=== PATIENT | female | born 1995 | race American Indian/Alaskan Native ===

== ENCOUNTER 2017-12-02 22:54 | Emergency (ER) | payer MEDICAID ==
[2017-12-02 23:23] VITALS: BP 115/73
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
== END 2017-12-03 01:40 | disposition home or self-care (01) ==
LOC: ED 22:54
DX: S65.212A Laceration of superficial palmar arch of left hand, initial encounter (principal); S61.250A Open bite of right index finger without damage to nail, initial encounter; E11.9 Type 2 diabetes mellitus without complications; F20.9 Schizophrenia, unspecified; F31.9 Bipolar disorder, unspecified; F90.9 Attention-deficit hyperactivity disorder, unspecified type; Z91.010 Allergy to peanuts; Z91.013 Allergy to seafood; Z88.8 Allergy status to other drugs, medicaments and biological substances; J45.909 Unspecified asthma, uncomplicated; Z87.891 Personal history of nicotine dependence; Y04.0XXA Assault by unarmed brawl or fight, initial encounter; Y93.89 Activity, other specified; Y92.89 Other specified places as the place of occurrence of the external cause; Y99.8 Other external cause status

== ENCOUNTER 2018-01-31 19:50 | Emergency (ER) | payer MEDICAID ==
[2018-01-31 21:07] LABS: BUN/Creatinine Ratio 17; Blood Urea Nitrogen 10 mg/dL (7-17); Calcium 9.4 mg/dL (8.4-10.2); Hemolysis Index 0
[2018-01-31 21:09] LABS: Basophils % (Auto) 0.5 % (0.0-1.8); Eosinophils # (Auto) 0.1 K/mm3 (0.0-0.4); Eosinophils % (Auto) 0.9 % (0.0-4.3); Hematocrit 38.8 % (30.3-42.9); Hemoglobin 12.6 gm/dl (10.1-14.3); Lymphocytes # (Auto) 1.5 K/mm3 (1.2-5.4); Lymphocytes % (Auto) 17.5 % (13.4-35.0); Mean Corpuscular HGB Conc 33 % (30-34); Mean Corpuscular Hemoglobin 32 pg (28-32); Mean Corpuscular Volume 97 fl (79-97); Monocytes # (Auto) 0.5 K/mm3 (0.0-0.8); Monocytes % (Auto) 5.3 % (0.0-7.3); Platelet Count 357 K/mm3 (140-440); Red Blood Count 4.01 M/mm3 (3.65-5.03); Red Cell Distribution Width 13.1 % (13.2-15.2)
[2018-01-31 21:23] LABS: Amphetamine Screen,Urine PRESUMPTIVE NEGATIVE; Benzodiazepines Screen,Urine PRESUMPTIVE NEGATIVE; Cannabinoid Screen,Urine PRESUMPTIVE NEGATIVE; Cocaine Screen,Urine PRESUMPTIVE NEGATIVE; Methadone Screen,Urine PRESUMPTIVE NEGATIVE; Opiate Screen,Urine PRESUMPTIVE NEGATIVE
[2018-01-31 21:30] LABS: Bacteria,Urine 1+ /HPF (Negative); Bilirubin,Urine NEG (Negative); Blood,Urine NEG (Negative); Color,Urine Yellow (Yellow); Mucus,Urine 2+ /HPF; Protein,Urine <15 mg/dL mg/dL (Negative); Urobilinogen,Urine < 2.0 mg/dL (<2.0)
[2018-01-31] MEDS ORDERED: HALDOL IM ONE (23:09)
[2018-01-31] MEDS ORDERED: COGENTIN IM ONE (23:36)
[2018-01-31] MEDS ORDERED: ATIVAN IM ONE (23:37)
--- NOTE | 2018-02-01 06:46 | Emergency Department Report ---
HPI - General Chief Complaint: Psych Time Seen by Provider: 01/31/18 21:05 - HPI HPI: 22-year-old -Nepalese female was brought to the ED for self mutilating, delusions, hallucinations. Patient wrote "alway love" with a razor on her right leg. The ACT team was called and patient was brought to er. in ER patient continue to have hallucinations, became agitated and required medications for stabilization. ED Past Medical Hx - Past Medical History Hx Diabetes: Yes Hx Psychiatric Treatment: Yes (schizophrenia-affective, bipolar, ADHD, PTSD) Hx Asthma: Yes Additional medical history: ECZEMA - Surgical History Additional Surgical History: chest abscess. - Social History Smoking Status: Never Smoker Substance Use Type: None - Medications Home Medications: Home Medications Medication Instructions Recorded Confirmed Last Taken Type carBAMazepine [TEGretol] 200 mg PO Q12H 04/10/15 06/29/16 Unknown History metFORMIN [Glucophage] 500 mg PO BID 01/26/16 06/29/16 Unknown History DULoxetine [Cymbalta] 30 mg PO QAM 06/29/16 06/29/16 Unknown History Lurasidone HCl [Latuda] 2 tab PO QHS 06/29/16 06/29/16 Unknown History Amoxicillin/Potassium Clav 1 each PO BID #14 tablet 12/03/17 Unknown Rx [Augmentin 875-125 Tablet] Erythromycin [Erythromycin Ophth 10 applic OP QID #1 tube 12/03/17 Unknown Rx Oint] ED Review of Systems ROS: Stated complaint: MH Other details as noted in HPI Comment: All other systems reviewed and negative Constitutional: no symptoms reported Neurological: denies: headache, weakness Psychiatric: anxiety, depression, auditory hallucinations, visual hallucinations. denies: homicidal thoughts Physical Exam - Physical Exam Vital Signs: Vital Signs 01/31/18 01/31/18 20:22 21:27 Temperature 97.9 F 98.9 F Pulse Rate 78 72 Respiratory 16 18 Rate Blood Pressure 119/83 Blood Pressure 124/86 [Left] O2 Sat by Pulse 100 100 Oximetry Physical Exam: Gen. alert and oriented 3 in no distress Head atraumatic normocephalic Eyes PERR LA EOMI Chest regular rate and rhythm normal S1-S2 lungs clear bilaterally Abdomen soft nondistended Back no point tenderness. Neuro no focal deficit. Psych auditory and visual hallucinations, delusions, self mutilating gestures. skin: always love written with a razor on patient lower leg, bleeding stopped. ED Course Vital Signs 01/31/18 01/31/18 20:22 21:27 Temperature 97.9 F 98.9 F Pulse Rate 78 72 Respiratory 16 18 Rate Blood Pressure 119/83 Blood Pressure 124/86 [Left] O2 Sat by Pulse 100 100 Oximetry ED Medical Decision Making - Lab Data Result diagrams: 01/31/18 20:32 01/31/18 20:32 Critical care attestation.: If time is entered above; I have spent that time in minutes in the direct care of this critically ill patient, excluding procedure time. ED Disposition Clinical Impression: Suicidal ideation, Encounter for medical clearance for patient hold Schizophrenia Qualifiers: Schizophrenia type: unspecified Qualified Code(s): F20.9 - Schizophrenia, unspecified Disposition: DC/TX-65 PSY HOSP/PSY UNIT Is pt being admited?: No Does the pt Need Aspirin: No Condition: Stable Referrals: MIYA PERKINS MD [Primary Care Provider] - 3-5 Days
[2018-02-01] MEDS ORDERED: BOOSTRIX IM ONE ×2 (06:55→13:30)
[2018-02-02] MEDS ORDERED: BENADRYL PO ONE ×2 (03:30)
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
[2018-02-02] MEDS: ABILIFY PO SCH (22:53)
[2018-02-03] MEDS: ABILIFY PO SCH (22:05)
--- NOTE | 2018-02-04 12:54 | Progress Note ---
Subjective - Reason for Consult Consult date: 02/04/18 Reason for consult: Psychiatry Follow-up - Chief Complaint Chief complaint: "I was hearing voices yesterday" 22-year-old -Ira[place] female was brought to the ED for self mutilating, delusions, and hallucinations. Today the patient is calm, cooperative, but disorganized during the assessment. She had to be redirected several times to keep her on topic. She stated that she carved "always love" in her right leg. She stated that the voices told her to do that. She stated that the voices are decreasing. She denies SI/HI's and VH's. She denies any side effects of her medication. Mental Status Exam - Vital signs Last Vital Signs Temp 98.7 F 02/04/18 10:46 Pulse 87 02/04/18 10:46 Resp 16 02/04/18 10:46 BP 113/68 02/04/18 10:46 Pulse Ox 100 02/04/18 10:46 - Exam Narrative exam: MSE: Appearance: calm, cooperative Behavior: regular eye contact Speech: regular rate and tone Mood: "okay" Affect: congruent to mood Thought Process: circumstantial Thought Content: denies SI/HI's and VH's, disorganized Motor Activity: sitting up in bed Cognition: A/O x 3 Insight: variable Judgment: variable Assessment and Plan Impression: Unspecified Psychosis. Today the patient is calm, cooperative, but disorganized during the assessment. DDx: R/O Schizoaffective DO, R/O MDD with psychosis, R/O Bipolar DO, R/O Personality DO Recommendation/Plan: Continue 1013 with placement to inpatient psy services. Continue Abilify 15 mg PO HS for psychosis. Discussed possible metabolic side effects of Abilify with patient.
[2018-02-04] MEDS: ABILIFY PO SCH (22:46)
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
[2018-02-05] MEDS: ABILIFY PO SCH (22:20)
--- NOTE | 2018-02-06 14:49 | Progress Note ---
Subjective - Reason for Consult Consult date: 02/06/18 Reason for consult: Psychiatric Follow-up Evaluation - Chief Complaint Chief complaint: "I feel good." Patient is a 22-year-old -Tuval[place] female was brought to the ED for self mutilating, delusions, and hallucinations. Today the patient is calm and cooperative during the assessment. She states "The voices are decreasing. They 're very low." Patient is unable to determine what the voices are saying. She reports good sleep, good appetite, and good energy. She reports medication compliance and denies any side effects to medication. No SI/HI's and VH's. are reported. Mental Status Exam - Vital signs Last Vital Signs Temp 98.3 F 02/05/18 22:00 Pulse 73 02/05/18 22:00 Resp 18 02/05/18 22:00 BP 128/76 02/05/18 22:00 Pulse Ox 100 02/05/18 22:00 - Exam Narrative exam: Mental Status Exam Appearance: Casually dressed- hospital gown Attitude/Behavior: Cooperative, calm Sensorium: Clear Orientation : Alert and orientation x 4 (person, place, time, and situation) Eye Contact: Good Psychomotor & Musculoskeletal: WNL Behavior: Appropriate Speech: Normal rate and tone Mood: "Happy" Affect: Congruent to mood Thought Process: Organized but circumstantial Thought Content: + Auditory Hallucinations-less Judgment: Fair Insight: Fair to Poor Assessment and Plan Impression: Guerda is a 22 year old AAF who presents to the emergency room for self mutilating, delusions, and hallucinations. Patient has PPHx of Schizophrenia. Today, patient is calm and cooperative. She reports euthymic mood. Although she endorses auditory hallucinations she states that the voices are decreasing. She denies suicidal/ homicidal ideation and visual hallucinations. Patient expresses that she has no desire to self-harm. Patient is known to provider at different facilities and appears to present with improved mood and psychosis. DDx: Psychosis Unspecified R/O Schizoaffective DO, R/O MDD with psychosis, R/ O Bipolar DO, R/O Personality DO Recommendation/Plan: 1. Continue 1013 and reassess in 24 hours. 2. Continue Abilify 15mg po QHS depression/psychosis. 3. Will monitor mood, sleep, appetite, and medication.
[2018-02-06] MEDS: ABILIFY PO SCH (22:45)
--- NOTE | 2018-02-07 11:20 | Progress Note ---
Subjective - Reason for Consult Consult date: 02/07/18 Reason for consult: Psychiatry Follow-up - Chief Complaint Chief complaint: "I will need somewhere to live" 22-year-old -Tongan female was brought to the ED for self mutilating, delusions, and hallucinations. Today the patient is calm and cooperative during the assessment. She stated that the voices has ceased. She stated that she has a ACT Team with [facility]. She denies SI/HI's and AVH's. She denies any side effects of her medication. Per collateral information from Vida Pierre with [facility] ACT [facility] at [phone], she stated that the patient is seen by their services. Mental Status Exam - Vital signs Last Vital Signs Temp 97.8 F 02/06/18 20:00 Pulse 68 02/06/18 20:00 Resp 18 02/06/18 20:00 BP 122/68 02/06/18 20:00 Pulse Ox 100 02/06/18 20:00 - Exam Narrative exam: MSE: Appearance: calm, cooperative Behavior: regular eye contact Speech: regular rate and tone Mood: "okay" Affect: congruent to mood Thought Process: logical Thought Content: denies SI/HI's and AVH's Motor Activity: sitting up in bed Cognition: A/O x 3 Insight: fair Judgment: fair Assessment and Plan Impression: Unspecified Psychosis. Today the patient is calm and cooperative during the assessment. DDx: R/O Schizoaffective DO, R/O Schizophrenia, R/O MDD with psychosis, R/O Bipolar DO, R/O Personality DO Recommendation/Plan: Rescind 1013. Continue Abilify 15 mg PO HS for psychosis. Discussed possible metabolic side effects of Abilify with patient. The patient can follow-up with her ACT Team ([facility]) for outpatient psy services.
[2018-02-07 16:34] VITALS: BP 94/65
== END 2018-02-07 19:09 ==
LOC: ED 19:50 → EEVIPCON 19:50 → ED 02-07 19:09
DX: R45.851 Suicidal ideations (principal); Z53.21 Procedure and treatment not carried out due to patient leaving prior to being seen by health care provider
CPT/HCPCS: 36415; 80048; 80307; 81001; 84703; 85025; 90471; 90715; 96372; 99285; G0480; J1630; 80320

== ENCOUNTER 2018-03-11 15:50 | Emergency (ER) | payer MEDICAID ==
[2018-03-11 16:14] VITALS: BP 119/75
[2018-03-11 16:49] LABS: HCG Qualitative,Urine Negative (Negative)
--- NOTE | 2018-03-11 17:59 | XRay Report ---
FINAL REPORT EXAM: XR HAND 3+V LT HISTORY: hand injury TECHNIQUE: PA, oblique and lateral radiographs of the left hand. PRIORS: None. FINDINGS: No fracture. No dislocation. Normal mineralization. No soft tissue abnormality. IMPRESSION: No acute left hand abnormality.
[2018-03-11] MEDS ORDERED: MOTRIN PO ONE (18:38)
--- NOTE | 2018-03-11 18:43 | Emergency Department Report ---
ED Upper Extremity Inj HPI - General Chief Complaint: Extremity Injury, Upper Stated Complaint: HAND INJURY Time Seen by Provider: 03/11/18 18:38 Source: patient Mode of arrival: Ambulatory Limitations: No Limitations - History of Present Illness Initial Comments: This is a 22-year-old female nontoxic, well nourished in appearance, no acute signs of distress presents to the ED with c/o of left hand pain and swelling. Patient stated that she became mad and hit the wall. Patient denies any decreased range of motion, joint swelling, joint redness, fever, chills, nausea , vomiting, headache, stiff neck, back pain, chest pain or shortness of breathe. Patient denies decreased sensation. MD Complaint: Injury to:: left, hand -: days(s) (1) Other Extremity Injury: Hand: Left Severity scale (0 -10): 8 Improves With: immobilization Worsens With: movement of extremity Context: direct blow Associated Symptoms: denies other symptoms. denies: weakness, numbness, neck pain, suspects foreign body, nausea/vomiting, heard/felt popping sensat - Related Data Home Medications Medication Instructions Recorded Confirmed Last Taken carBAMazepine [TEGretol] 200 mg PO Q12H 04/10/15 02/02/18 Unknown metFORMIN [Glucophage] 500 mg PO BID 01/26/16 02/02/18 Unknown DULoxetine [Cymbalta] 30 mg PO QAM 06/29/16 02/02/18 Unknown Lurasidone HCl [Latuda] 2 tab PO QHS 06/29/16 02/02/18 Unknown Previous Rx's Medication Instructions Recorded Last Taken Type Amoxicillin/Potassium Clav 1 each PO BID #14 tablet 12/03/17 Unknown Rx [Augmentin 875-125 Tablet] Erythromycin [Erythromycin Ophth 10 applic OP QID #1 tube 12/03/17 Unknown Rx Oint] Ibuprofen [Motrin] 600 mg PO Q8H PRN #30 tablet 03/11/18 Unknown Rx Allergies Allergy/AdvReac Type Severity Reaction Status Date / Time wheat Allergy Unknown Verified 03/11/18 16:11 peanut AdvReac Unknown Verified 12/02/17 23:19 quetiapine fumarate AdvReac Unknown Verified 12/02/17 23:19 [From Seroquel] shellfish derived AdvReac Unknown Verified 12/02/17 23:19 sea foods Allergy Hives Uncoded 02/04/18 23:19 ED Review of Systems ROS: Stated complaint: HAND INJURY Other details as noted in HPI Constitutional: denies: chills, fever Eyes: denies: eye pain, eye discharge, vision change ENT: denies: ear pain, throat pain Respiratory: denies: cough, shortness of breath, wheezing Cardiovascular: denies: chest pain, palpitations Endocrine: no symptoms reported Gastrointestinal: denies: abdominal pain, nausea, diarrhea Genitourinary: denies: urgency, dysuria, discharge Musculoskeletal: arthralgia. denies: back pain, joint swelling Skin: denies: rash, lesions Neurological: denies: headache, weakness, paresthesias Psychiatric: denies: anxiety, depression Hematological/Lymphatic: denies: easy bleeding, easy bruising ED Past Medical Hx - Past Medical History Hx Diabetes: Yes Hx Psychiatric Treatment: Yes (schizophrenia-affective, bipolar, ADHD, PTSD) Hx Asthma: Yes Additional medical history: ECZEMA - Surgical History Additional Surgical History: chest abscess. - Social History Smoking Status: Never Smoker Substance Use Type: None - Medications Home Medications: Home Medications Medication Instructions Recorded Confirmed Last Taken Type carBAMazepine [TEGretol] 200 mg PO Q12H 04/10/15 02/02/18 Unknown History metFORMIN [Glucophage] 500 mg PO BID 01/26/16 02/02/18 Unknown History DULoxetine [Cymbalta] 30 mg PO QAM 06/29/16 02/02/18 Unknown History Lurasidone HCl [Latuda] 2 tab PO QHS 06/29/16 02/02/18 Unknown History Amoxicillin/Potassium Clav 1 each PO BID #14 tablet 12/03/17 02/02/18 Unknown Rx [Augmentin 875-125 Tablet] Erythromycin [Erythromycin Ophth 10 applic OP QID #1 tube 12/03/17 02/02/18 Unknown Rx Oint] Ibuprofen [Motrin] 600 mg PO Q8H PRN #30 tablet 03/11/18 Unknown Rx ED Physical Exam - General Limitations: No Limitations General appearance: alert, in no apparent distress - Head Head exam: Present: atraumatic, normocephalic - Eye Eye exam: Present: normal appearance Pupils: Present: normal accommodation - ENT ENT exam: Present: normal exam, mucous membranes moist - Neck Neck exam: Present: normal inspection, full ROM. Absent: tenderness, meningismus, lymphadenopathy - Respiratory Respiratory exam: Present: normal lung sounds bilaterally. Absent: respiratory distress, wheezes, rales, rhonchi, stridor - Cardiovascular Cardiovascular Exam: Present: regular rate, normal rhythm, normal heart sounds. Absent: irregular rhythm, systolic murmur, diastolic murmur, rubs, gallop - GI/Abdominal GI/Abdominal exam: Present: soft, normal bowel sounds. Absent: distended, tenderness, guarding, rebound, rigid, diminished bowel sounds - Rectal Rectal exam: Present: deferred - Extremities Exam Extremities exam: Present: normal inspection, full ROM, tenderness, normal capillary refill - Expanded Upper Extremity Exam Left General: Present: normal inspection Shoulder Exam: Present: normal inspection, full ROM Upper Arm exam: Present: normal inspection, full ROM Elbow exam: Present: normal inspection, full ROM Forearm Wrist exam: Present: normal inspection, full ROM. Absent: tenderness, swelling, abrasion, laceration, ecchymosis, deformity, crepidus, dislocation, erythema, tenderness over anatomical snuff box, pain with axial thumb loading Hand Wrist exam: Present: normal inspection, full ROM, tenderness, swelling. Absent: abrasion, laceration, ecchymosis, deformity, crepidus, dislocation, erythema, amputation, nail avulsion, subungual hematoma Hand L/R Back: 1 - pain with swelling here Neuro motor exam: Present: wrist extension intact, thumb opposition intact, thumb IP flexion intact, thumb adduction intact, fingers 2-5 abduction intact Neurosensory exam: Present: 2-point discrimination, radial nerve intact, ulnar nerve intact, median nerve intact Vascular: Present: vascular compromise, normal capillary refill, radial pulse, brachial pulse, ulnar pulse - Back Exam Back exam: Present: normal inspection, full ROM - Neurological Exam Neurological exam: Present: alert, oriented X3, normal gait - Psychiatric Psychiatric exam: Present: normal affect, normal mood - Skin Skin exam: Present: warm, dry, intact, normal color. Absent: rash ED Course Vital Signs 03/11/18 16:11 Temperature 98.7 F Pulse Rate 105 H Respiratory 18 Rate Blood Pressure 119/75 O2 Sat by Pulse 97 Oximetry - Reevaluation(s) Reevaluation #1: 03/11/18 18:42 Patient is speaking in full sentences with no signs of distress noted. ED Medical Decision Making - Medical Decision Making This is a 22-year-old female that presents with left hand strain. Patient is stable and was examined by me. X-ray has been obtained and dictated by the radiologist. Patient is notified of the x-ray report with noted by the patient. Patient does not have decreased ROM with no tenderness and no joint swelling. No ecchymosis. no joint redness. Not warm to touch. No signs of cellulites present. Patient was instructed to RICE therapy. Patient received Motrin for pain. Patient is discharged with Motrin. At time of discharge, the patient does not seem toxic or ill in appearance. No acute signs of distress noted. Patient agrees to discharge treatment plan of care. No further questions noted by the patient. Critical care attestation.: If time is entered above; I have spent that time in minutes in the direct care of this critically ill patient, excluding procedure time. ED Disposition Clinical Impression: Strain of left hand Qualifiers: Encounter type: initial encounter Qualified Code(s): S66.912A - Strain of unspecified muscle, fascia and tendon at wrist and hand level, left hand, initial encounter Disposition: DC- TO HOME OR SELFCARE Is pt being admited?: No Does the pt Need Aspirin: No Condition: Stable Instructions: RICE Therapy (ED), Ibuprofen (By mouth) Additional Instructions: Follow-up with a orthopedic doctor in 3-5 days or if symptoms worsen and continue return to emergency room as soon as possible. Prescriptions: Ibuprofen [Motrin] 600 mg PO Q8H PRN #30 tablet PRN Reason: Pain Referrals: PRIMARY CARE, [Referring] - 3-5 Days JONNA LANTIGUA MD [Staff Physician] - 3-5 Days [facility] [Outside] - 3-5 Days [facility] [Outside] - 3-5 Days Forms: Work/School Release Form(ED)
== END 2018-03-11 19:00 | disposition home or self-care (01) ==
LOC: ED 15:50
DX: S66.912A Strain of unspecified muscle, fascia and tendon at wrist and hand level, left hand, initial encounter (principal); E11.9 Type 2 diabetes mellitus without complications; Z91.010 Allergy to peanuts; Z91.013 Allergy to seafood; Z88.8 Allergy status to other drugs, medicaments and biological substances; Z91.018 Allergy to other foods; W22.01XA Walked into wall, initial encounter; Y93.89 Activity, other specified; Y92.89 Other specified places as the place of occurrence of the external cause; Y99.8 Other external cause status
CPT/HCPCS: 81025; 99284

== ENCOUNTER 2018-05-02 16:31 | Emergency (ER) | payer MEDICAID | END 2018-05-02 16:46 | disposition left against medical advice (07) | LOC: ED 16:31 | DX: Z00.8 Encounter for other general examination (principal); Z53.21 Procedure and treatment not carried out due to patient leaving prior to being seen by health care provider ==

== ENCOUNTER 2018-05-02 19:43 | Emergency (ER) | payer MEDICAID ==
[2018-05-02 20:46] LABS: Basophils # (Auto) 0.1 K/mm3 (0.0-0.1); Basophils % (Auto) 0.6 % (0.0-1.8); Eosinophils # (Auto) 0.1 K/mm3 (0.0-0.4); Eosinophils % (Auto) 0.9 % (0.0-4.3); Hematocrit 37.6 % (30.3-42.9); Hemoglobin 12.4 gm/dl (10.1-14.3); Lymphocytes # (Auto) 1.8 K/mm3 (1.2-5.4); Mean Corpuscular HGB Conc 33 % (30-34); Mean Corpuscular Hemoglobin 31 pg (28-32); Mean Corpuscular Volume 95 fl (79-97); Monocytes # (Auto) 0.6 K/mm3 (0.0-0.8); Monocytes % (Auto) 5.8 % (0.0-7.3); Platelet Count 375 K/mm3 (140-440); Red Blood Count 3.95 M/mm3 (3.65-5.03)
[2018-05-02 20:51] LABS: BUN/Creatinine Ratio 23; Blood Urea Nitrogen 14 mg/dL (7-17); Calcium 9.6 mg/dL (8.4-10.2); Hemolysis Index 2
--- NOTE | 2018-05-02 21:29 | Emergency Department Report ---
ED Psych HPI - General Chief Complaint: Psych Stated Complaint: MH Time Seen by Provider: 05/02/18 21:08 Source: patient Mode of arrival: Ambulatory - History of Present Illness Initial Comments: Ms. Paulson is a 22-year-old female with history of schizophrenia, asthma and eczema who presents after being kicked out of her residential,[facility] She was told she was unable to come back to the house. She was brought to the ER by EMS. She does have command hallucinations telling her to kill herself although she states that she is not depressed. She states that she does not want to kill herself. Desires to be placed into [place] psychiatric facility. She does not have any medical complaints. She receives mental health care at [facility]. She takes Clozaril Complaint: other (command auditory hallucinations) -: Gradual, days(s) (over the last several days) Associated Psychiatric Symptoms: none, auditory hallucinations Quality: constant Improves With: none Worsens With: none Context: significant life stressor Associated Symptoms: denies other symptoms - Related Data Home Medications Medication Instructions Recorded Confirmed Last Taken carBAMazepine [TEGretol] 200 mg PO Q12H 04/10/15 02/02/18 Unknown metFORMIN [Glucophage] 500 mg PO BID 01/26/16 02/02/18 Unknown DULoxetine [Cymbalta] 30 mg PO QAM 06/29/16 02/02/18 Unknown Lurasidone HCl [Latuda] 2 tab PO QHS 06/29/16 02/02/18 Unknown Previous Rx's Medication Instructions Recorded Last Taken Type Amoxicillin/Potassium Clav 1 each PO BID #14 tablet 12/03/17 Unknown Rx [Augmentin 875-125 Tablet] Erythromycin [Erythromycin Ophth 10 applic OP QID #1 tube 12/03/17 Unknown Rx Oint] Ibuprofen [Motrin] 600 mg PO Q8H PRN #30 tablet 03/11/18 Unknown Rx Allergies Allergy/AdvReac Type Severity Reaction Status Date / Time wheat Allergy Unknown Verified 03/11/18 16:11 peanut AdvReac Unknown Verified 12/02/17 23:19 quetiapine fumarate AdvReac Unknown Verified 12/02/17 23:19 [From Seroquel] shellfish derived AdvReac Unknown Verified 12/02/17 23:19 sea foods Allergy Hives Uncoded 12/02/17 23:19 ED Review of Systems ROS: Stated complaint: MH Other details as noted in HPI Comment: All other systems reviewed and negative Constitutional: denies: fever, malaise Respiratory: denies: cough Cardiovascular: denies: chest pain Psychiatric: auditory hallucinations. denies: anxiety, depression, visual hallucinations, homicidal thoughts ED Past Medical Hx - Past Medical History Hx Diabetes: Yes Hx Psychiatric Treatment: Yes (schizophrenia-affective, bipolar, ADHD, PTSD) Hx Asthma: Yes Additional medical history: ECZEMA - Surgical History Additional Surgical History: chest abscess. - Social History Smoking Status: Never Smoker Substance Use Type: None - Medications Home Medications: Home Medications Medication Instructions Recorded Confirmed Last Taken Type carBAMazepine [TEGretol] 200 mg PO Q12H 04/10/15 02/02/18 Unknown History metFORMIN [Glucophage] 500 mg PO BID 01/26/16 02/02/18 Unknown History DULoxetine [Cymbalta] 30 mg PO QAM 06/29/16 02/02/18 Unknown History Lurasidone HCl [Latuda] 2 tab PO QHS 06/29/16 02/02/18 Unknown History Amoxicillin/Potassium Clav 1 each PO BID #14 tablet 12/03/17 02/02/18 Unknown Rx [Augmentin 875-125 Tablet] Erythromycin [Erythromycin Ophth 10 applic OP QID #1 tube 12/03/17 02/02/18 Unknown Rx Oint] Ibuprofen [Motrin] 600 mg PO Q8H PRN #30 tablet 03/11/18 Unknown Rx ED Physical Exam - General Limitations: No Limitations General appearance: alert, in no apparent distress - Head Head exam: Present: atraumatic, normocephalic - Eye Eye exam: Present: normal appearance - ENT ENT exam: Present: mucous membranes moist - Neck Neck exam: Present: normal inspection. Absent: tenderness, meningismus - Respiratory Respiratory exam: Present: normal lung sounds bilaterally. Absent: respiratory distress, wheezes, rales, rhonchi - Cardiovascular Cardiovascular Exam: Present: regular rate, normal rhythm, normal heart sounds. Absent: systolic murmur, diastolic murmur, rubs, gallop - GI/Abdominal GI/Abdominal exam: Present: soft, normal bowel sounds. Absent: distended, tenderness, guarding, rebound - Extremities Exam Extremities exam: Present: normal inspection - Back Exam Back exam: Present: normal inspection - Neurological Exam Neurological exam: Present: alert, oriented X3 - Psychiatric Psychiatric exam: Present: normal affect, normal mood - Skin Skin exam: Present: warm, dry, intact, normal color. Absent: rash ED Course Vital Signs 05/02/18 05/02/18 19:50 21:55 Temperature 99.1 F 98.1 F Pulse Rate 130 H 105 H Respiratory 16 18 Rate Blood Pressure 151/105 Blood Pressure 116/75 [Left] O2 Sat by Pulse 98 100 Oximetry ED Medical Decision Making - Lab Data Result diagrams: 05/02/18 20:28 05/02/18 20:28 - EKG Data EKG shows normal: sinus rhythm, axis, intervals, QRS complexes, ST-T waves Rate: tachycardia - EKG Data 05/02/18 21:35 Time obtained 2024 Sinus tachycardia rate 115 beats a minute normal axis normal intervals no ST-T signs of ischemia no signs of pericarditis no acute Q waves 05/02/18 22:02 Second EKG obtained at 2141 Sinus tachycardia rate of 100 normal axis normal intervals no ST-T signs of ischemia no acute changes from previous EKG - Medical Decision Making Ms. Paulson presents with auditory hallucinations command hallucinations telling her to kill herself. She also has social issues. She does not have a place to stay. She was evicted from her residential. She was placed on 1013 for inability to contract for safety and poor insight. I reviewed previous ER reports. She's had recent suicide attempt and self mutilation. She recently tried to hang herself. She used a razor to cut herself. Guerda is medically clear for psychiatric care. Awaiting transfer to psychiatric facility. Critical care attestation.: If time is entered above; I have spent that time in minutes in the direct care of this critically ill patient, excluding procedure time. ED Disposition Clinical Impression: Schizophrenia, Suicidal ideation, Auditory hallucinations Disposition: DC/TX-70 ANOTHER TYPE HLTHCARE Is pt being admited?: No Does the pt Need Aspirin: No Condition: Stable Referrals: PRIMARY CARE, [Primary Care Provider] - 3-5 Days
[2018-05-02 21:47] LABS: Bilirubin,Urine NEG (Negative); Blood,Urine NEG (Negative); Color,Urine Yellow (Yellow); Mucus,Urine FEW /HPF; Protein,Urine <15 mg/dL mg/dL (Negative)
[2018-05-02 21:57] LABS: Amphetamine Screen,Urine PRESUMPTIVE NEGATIVE; Benzodiazepines Screen,Urine PRESUMPTIVE NEGATIVE; Cannabinoid Screen,Urine PRESUMPTIVE NEGATIVE; Cocaine Screen,Urine PRESUMPTIVE NEGATIVE; Methadone Screen,Urine PRESUMPTIVE NEGATIVE; Opiate Screen,Urine PRESUMPTIVE NEGATIVE
--- NOTE | 2018-05-03 14:21 | Consultation ---
History of Present Illness - Reason for Consult Consult date: 05/03/18 Reason for consult: Mental Health Evaluation Requesting physician: RICHARD ASHTON - Chief Complaint Chief complaint: "It's the voices" - History of Present Psychiatric Illness 22 y.o. AA female presenting to the ER for AH's telling her to kill herself. Today the patient is calm and cooperative during the assessment. She stated that she got into an argument with someone name "Stormy" at her place of residence a couple days ago. She stated that she went to [place] for stabilization and ran away. Her story that lead up to her ER admission to [facility] does not make since. She stated that the voices started effecting her when she ran away from [place]. She stated that the voices are telling her to harm herself. She would not confirm or deny SI's, but denies HI's. She denies VH's. She stated that she have not taken her Clozaril in 3 days. Medications and Allergies Allergies Allergy/AdvReac Type Severity Reaction Status Date / Time wheat Allergy Unknown Verified 03/11/18 16:11 peanut AdvReac Unknown Verified 12/02/17 23:19 quetiapine fumarate AdvReac Unknown Verified 12/02/17 23:19 [From Seroquel] shellfish derived AdvReac Unknown Verified 12/02/17 23:19 sea foods Allergy Hives Uncoded 12/02/17 23:19 Home Medications Medication Instructions Recorded Confirmed Last Taken Type carBAMazepine [TEGretol] 200 mg PO Q12H 04/10/15 02/02/18 Unknown History metFORMIN [Glucophage] 500 mg PO BID 01/26/16 02/02/18 Unknown History DULoxetine [Cymbalta] 30 mg PO QAM 06/29/16 02/02/18 Unknown History Lurasidone HCl [Latuda] 2 tab PO QHS 06/29/16 02/02/18 Unknown History Amoxicillin/Potassium Clav 1 each PO BID #14 tablet 12/03/17 02/02/18 Unknown Rx [Augmentin 875-125 Tablet] Erythromycin [Erythromycin Ophth 10 applic OP QID #1 tube 12/03/17 02/02/18 Unknown Rx Oint] Ibuprofen [Motrin] 600 mg PO Q8H PRN #30 tablet 03/11/18 Unknown Rx Past psychiatric history - Past Medical History Past Medical History: diabetes, other (Asthma) Past Surgical History: No surgical history - past Psychiatric treatment and history psychiatric treatment history: Several inpatient psy settings. Denies a fam psy hx. - Social History Social history: other ([facility] at a [facility]) Mental Status Exam - Vital signs Last Vital Signs Temp 97.5 F L 05/03/18 10:30 Pulse 108 H 05/03/18 10:30 Resp 18 05/03/18 11:52 BP 128/79 05/03/18 10:30 Pulse Ox 97 05/03/18 11:52 - Exam Narrative exam: MSE: Appearance: calm, cooperative Behavior: regular eye contact Speech: regular rate and tone Mood: "okay" Affect: congruent to mood Thought Process: disorganized Thought Content: denies HI's and VH's, the patient will not confirm or deny SI' s Motor Activity: sitting up in bed Cognition: A/O x 3 Insight: poor Judgment: poor Results Result Diagrams: 05/02/18 20:28 05/02/18 20:28 Abnormal lab results 05/02/18 05/02/18 05/02/18 Range/Units 20:28 20:28 20:29 RDW 13.0 L (13.2-15.2) % Seg Neutrophils % 75.7 H (40.0-70.0) % Seg Neutrophils # 8.0 H (1.8-7.7) K/mm3 Creatinine 0.6 L (0.7-1.2) mg/dL Glucose 119 H (65-100) mg/dL Salicylates (2.8-20.0) mg/dL Acetaminophen < 5.0 L (10.0-30.0) ug/mL 05/02/18 Range/Units 20:30 RDW (13.2-15.2) % Seg Neutrophils % (40.0-70.0) % Seg Neutrophils # (1.8-7.7) K/mm3 Creatinine (0.7-1.2) mg/dL Glucose (65-100) mg/dL Salicylates < 0.3 L (2.8-20.0) mg/dL Acetaminophen (10.0-30.0) ug/mL All other labs normal. Assessment and Plan Assessment and plan: Impression: Unspecified Psychosis. Today the patient is calm and cooperative during the assessment. UDS is negative. DDx: R/O Bipolar DO, R/O Schizophrenia, R/O Schizoaffective DO Recommendation/Plan: Continue 1013 with placement to inpatient psy services. Start Abilify 5 mg PO daily for psychosis. Discussed possible metabolic side effects of Abilify with patient. Clozaril isn't on formulary.
[2018-05-03] MEDS: ABILIFY PO SCH (18:36)
[2018-05-04] MEDS: ABILIFY PO SCH ×2 (11:31→23:01)
[2018-05-04] MEDS ORDERED: HALDOL IM ONE (17:59)
--- NOTE | 2018-05-04 21:40 | Progress Note ---
Subjective - Reason for Consult Consult date: 05/04/18 Reason for consult: follow up - Chief Complaint Chief complaint: "When can I go to the hospital?" 22 y.o. AA female presenting to the ER for AH's telling her to kill herself. Today the patient is calm and cooperative during the assessment. She stated that she got into an argument with someone name "Stormy" at her place of residence a couple days ago. She stated that she went to [place] for stabilization and ran away. She would not confirm or deny SI/HI. She stated that she have not taken her Clozaril in 4 days. She refused abilify. Mental Status Exam - Vital signs Last Vital Signs Temp 98.2 F 05/04/18 09:00 Pulse 92 H 05/04/18 09:00 Resp 20 05/04/18 09:00 BP 96/62 05/04/18 09:00 Pulse Ox 97 05/04/18 09:00 - Exam Narrative exam: MSE: Appearance: calm, Behavior: withdrawn Speech: soft spoken Mood: "okay" Affect: constricted Thought Process: disorganized Thought Content: AH present, did not describe. unable to assess SI/HI Motor Activity: sitting up in bed Cognition: A/O x 3 Insight: poor Judgment: poor Assessment and Plan Impression: Unspecified Psychosis. Today the patient is calm and cooperative during the assessment. UDS is negative. DDx: R/O Bipolar DO, R/O Schizophrenia, R/O Schizoaffective DO Recommendation/Plan: Continue 1013 with placement to inpatient psy services. Start Abilify 5 mg PO daily for psychosis. Discussed possible metabolic side effects of Abilify with patient. Clozaril isn't on formulary. She states no one is able to bring the clozapine from home. It was ordered as non formulary. She will need to be titrated upward from 25mg daily once available.
[2018-05-04] MEDS: CLOZAPINE 25 MG PO SCH (22:00)
[2018-05-04] MEDS ORDERED: BENADRYL PO ONE (22:30)
[2018-05-04] MEDS: BENADRYL PO SCH (23:01)
[2018-05-05] MEDS: ABILIFY PO SCH (12:31)
[2018-05-05] MEDS: CLOZAPINE 25 MG PO SCH (21:46)
[2018-05-05] MEDS: BENADRYL PO SCH (21:46)
--- NOTE | 2018-05-05 23:56 | Progress Note ---
Subjective - Reason for Consult Consult date: 05/05/18 Reason for consult: follow up - Chief Complaint Chief complaint: "I'm fine now" 22 y.o. AA female presenting to the ER for AH's telling her to kill herself. Today the patient is calm and cooperative during the assessment. She stated that she have not taken her Clozaril in 5 days. She took abilify and denies side effects. She states she is doing well and denies SI/HI. She states she is not hearing voices now. She reports having multiple medication trials and states Clozaril works well for her. She states she does not need it and abilify is working. She perseverated about going home. She states she wants to go to [facility] if she can't go home. Mental Status Exam - Vital signs Last Vital Signs Temp 97.3 F L 05/05/18 10:00 Pulse 87 05/05/18 10:00 Resp 18 05/05/18 10:00 BP 100/52 05/05/18 10:00 Pulse Ox 100 05/05/18 10:00 - Exam Narrative exam: MSE: Appearance: calm, Behavior: cooperative Speech: soft spoken Mood: "okay" Affect: constricted Thought Process: disorganized/perseverative Thought Content: denies SI/HI/AVH Motor Activity: sitting up in bed Cognition: A/O x 3 Insight: poor Judgment: poor Assessment and Plan Impression: Unspecified Psychosis. Today the patient is calm and cooperative during the assessment. UDS is negative. DDx: R/O Bipolar DO, R/O Schizophrenia, R/O Schizoaffective DO Recommendation/Plan: Continue 1013 with placement to inpatient psy services. Continue Abilify 5 mg PO daily for psychosis. Discussed possible metabolic side effects of Abilify with patient. Clozaril isn't on formulary. She states no one is able to bring the clozapine from home. It was ordered as non formulary. She will need to be titrated upward from 25mg daily once available.
[2018-05-06 09:23] VITALS: BP 111/72
--- NOTE | 2018-05-06 10:49 | Progress Note ---
Subjective - Reason for Consult Consult date: 05/06/18 Reason for consult: Psychiatry Follow-up - Chief Complaint Chief complaint: "I'm fine now" 22 y.o. AA female presenting to the ER for AH's telling her to kill herself. Today the patient is calm and cooperative during the assessment. She stated that she may need placement once discharged. She stated that she has a [facility] team ([facility]) for outpatient psy services. Per collateral information from Sarah Smith at [phone] ([facility]), she stated that the patient is seen by her staff. The patient denies SI/HI's and AVH's. She denies any side effects of her medication. Mental Status Exam - Vital signs Last Vital Signs Temp 97.9 F 05/06/18 07:21 Pulse 95 H 05/06/18 07:21 Resp 16 05/06/18 07:21 BP 111/72 05/06/18 07:21 Pulse Ox 99 05/06/18 07:21 - Exam Narrative exam: MSE: Appearance: calm, cooperative Behavior: regular eye contact Speech: regular rate and tone Mood: "a lot better" Affect: congruent to mood Thought Process: linear Thought Content: denies SI/HI's and AVH's Motor Activity: sitting up in bed Cognition: A/O x 3 Insight: appropriate Judgment: appropriate Assessment and Plan Impression: Unspecified Psychosis. Today the patient is calm and cooperative during the assessment. UDS is negative. DDx: R/O Bipolar DO, R/O Schizophrenia, R/O Schizoaffective DO Recommendation/Plan: Rescind 1013. Continue Abilify 5 mg PO daily for psychosis. Discussed possible metabolic side effects of Abilify with patient. Clozaril isn't on formulary. The patient can follow up with [facility] for outpatient psy services.
[2018-05-06] MEDS: ABILIFY PO SCH (11:55)
--- NOTE | 2018-05-06 12:28 | Emergency Department Report ---
Blank Doc - Documentation Documentation: Discharge psychiatric note, 12:15 PM, 05/06/2018 Patient has been evaluated by mental health, after being involuntarily committed under 1013 confinement for auditory hallucinations, with suicidal intent, and threats to self. Patient has been sent stable him a report that hallucinations have subsided, she is not suicidal at this time, was never really suicidal, and is comfortable returning to her prior facility. Report is that she will be going back to [facility], and she will receive outpatient counseling, and is to resume her regular outpatient medicine, Clozaril, 200 mg twice daily, that she is not sure if she has any back at the facility. On my examination, patient is calm, well oriented, cooperative, and in no acute distress. She shows no visible agitation, no psychosis, does not appear to be altered or having any hallucinations or other stigma of psychosis, and I believe is also stable for outpatient treatment. I am resending patient's 1013 confinement, as of now, and will discharge patient to prior care per mental health team, and we'll give her refill of her Clozaril. She may resume prior care that she was getting before.
== END 2018-05-06 12:37 | disposition home or self-care (01) ==
LOC: EEVIPCON 19:43 → ED 19:43
DX: F20.9 Schizophrenia, unspecified (principal); F31.9 Bipolar disorder, unspecified; E11.9 Type 2 diabetes mellitus without complications; J45.909 Unspecified asthma, uncomplicated; Z91.010 Allergy to peanuts; Z91.013 Allergy to seafood; Z91.018 Allergy to other foods
CPT/HCPCS: 36415; 80048; 80307; 81001; 82962; 85025; 93005; 93010; 99285; G0480; J1630; 80320

== ENCOUNTER 2018-07-06 22:23 | Emergency (ER) | payer MEDICAID ==
--- NOTE | 2018-07-06 23:02 | Emergency Department Report ---
ED Psych HPI - General Chief Complaint: Psych Stated Complaint: MH EVAL Time Seen by Provider: 07/06/18 22:50 Source: patient, police Mode of arrival: Ambulatory - History of Present Illness Initial Comments: Patient is a 22 years old female with history of schizophrenia. Patient brought to the ER by police department after patient was making threats to kill herself. Patient stated that she is hearing voices asking had to run in traffic to kill herself. Patient denied any homicidal ideation. No visual hallucination. Patient had multiple suicidal attempts before. MD Complaint: suicidal ideation, feels depressed - Related Data Home Medications Medication Instructions Recorded Confirmed Last Taken cloZAPine 200 mg PO BID 05/04/18 07/06/18 Unknown Previous Rx's Medication Instructions Recorded Last Taken Type cloZAPine 200 mg PO BID #60 tab 05/06/18 Unknown Rx Allergies Allergy/AdvReac Type Severity Reaction Status Date / Time wheat Allergy Unknown Verified 03/11/18 16:11 peanut AdvReac Unknown Verified 12/02/17 23:19 quetiapine fumarate AdvReac Unknown Verified 12/02/17 23:19 [From Seroquel] shellfish derived AdvReac Unknown Verified 12/02/17 23:19 sea foods Allergy Hives Uncoded 12/02/17 23:19 ED Review of Systems ROS: Stated complaint: MH EVAL Other details as noted in HPI Comment: All other systems reviewed and negative Constitutional: denies: chills, fever Respiratory: denies: cough, orthopnea, shortness of breath, SOB with exertion Cardiovascular: denies: chest pain, palpitations Gastrointestinal: denies: abdominal pain, nausea, vomiting Musculoskeletal: denies: back pain Neurological: denies: headache ED Past Medical Hx - Past Medical History Previous Medical History?: Yes Hx Diabetes: Yes Hx Psychiatric Treatment: Yes (schizophrenia-affective, bipolar, ADHD, PTSD) Hx Asthma: Yes Additional medical history: ECZEMA - Surgical History Past Surgical History?: Yes Additional Surgical History: chest abscess. - Social History Smoking Status: Never Smoker - Medications Home Medications: Home Medications Medication Instructions Recorded Confirmed Last Taken Type cloZAPine 200 mg PO BID 05/04/18 07/06/18 Unknown History cloZAPine 200 mg PO BID #60 tab 05/06/18 07/06/18 Unknown Rx ED Physical Exam - General Limitations: No Limitations, Other General appearance: alert, in no apparent distress - Head Head exam: Present: atraumatic - Eye Eye exam: Present: normal appearance - Neck Neck exam: Present: normal inspection, full ROM. Absent: tenderness, meningismus - Respiratory Respiratory exam: Present: normal lung sounds bilaterally - Cardiovascular Cardiovascular Exam: Present: regular rate, normal rhythm, normal heart sounds - GI/Abdominal GI/Abdominal exam: Present: soft, normal bowel sounds. Absent: distended, tenderness, guarding, rebound, rigid, organomegaly, mass, bruit - Extremities Exam Extremities exam: Present: normal inspection, full ROM, normal capillary refill - Back Exam Back exam: Present: normal inspection, full ROM. Absent: tenderness, CVA tenderness (R), CVA tenderness (L), muscle spasm, rash noted - Neurological Exam Neurological exam: Present: alert, oriented X3, CN II-XII intact, normal gait, reflexes normal - Skin Skin exam: Present: warm, intact, normal color ED Course Vital Signs 07/06/18 22:51 Temperature 98.3 F Pulse Rate 98 H Respiratory 18 Rate Blood Pressure 106/70 [Left] O2 Sat by Pulse 98 Oximetry Critical care attestation.: If time is entered above; I have spent that time in minutes in the direct care of this critically ill patient, excluding procedure time. ED Disposition Clinical Impression: Suicidal ideation Disposition: [id number]/TX-65 PSY HOSP/PSY UNIT Is pt being admited?: No Condition: Stable
[2018-07-06 23:19] LABS: Hematocrit 35.2 % (30.3-42.9); Hemoglobin 11.9 gm/dl (10.1-14.3); Mean Corpuscular HGB Conc 34 % (30-34); Mean Corpuscular Hemoglobin 32 pg (28-32); Mean Corpuscular Volume 95 fl (79-97); Platelet Count 344 K/mm3 (140-440); Red Blood Count 3.72 M/mm3 (3.65-5.03); Red Cell Distribution Width 12.9 % (13.2-15.2)
[2018-07-06 23:34] LABS: BUN/Creatinine Ratio 16; Blood Urea Nitrogen 11 mg/dL (7-17); Calcium 8.9 mg/dL (8.4-10.2); Hemolysis Index 9
[2018-07-06 23:39] LABS: Basophils # (Auto) 0.1 K/mm3 (0.0-0.1); Basophils % (Auto) 0.7 % (0.0-1.8); Eosinophils # (Auto) 0.2 K/mm3 (0.0-0.4); Eosinophils % (Auto) 2.3 % (0.0-4.3); Lymphocytes # (Auto) 2.1 K/mm3 (1.2-5.4); Lymphocytes % (Auto) 23.5 % (13.4-35.0); Monocytes # (Auto) 0.7 K/mm3 (0.0-0.8); Monocytes % (Auto) 7.6 % (0.0-7.3)
[2018-07-07 00:08] LABS: Bilirubin,Urine NEG (Negative); Blood,Urine NEG (Negative); Color,Urine Yellow (Yellow); Mucus,Urine 1+ /HPF
[2018-07-07 00:15] LABS: Amphetamine Screen,Urine PRESUMPTIVE NEGATIVE; Benzodiazepines Screen,Urine PRESUMPTIVE NEGATIVE; Cannabinoid Screen,Urine PRESUMPTIVE NEGATIVE; Cocaine Screen,Urine PRESUMPTIVE NEGATIVE; Methadone Screen,Urine PRESUMPTIVE NEGATIVE; Opiate Screen,Urine PRESUMPTIVE NEGATIVE
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
--- NOTE | 2018-07-08 10:45 | Progress Note ---
Subjective - Reason for Consult Consult date: 07/08/18 Reason for consult: Psychiatry Follow-up - Chief Complaint Chief complaint: "I was just mad" 22 years old female presenting to the ER for SI's and hearing voices. Today the patient is calm and cooperative during the assessment. She stated that she was "mad" when she mentioned wanting to kill herself during triage. She wouldn't confirm or deny stating that she was hearing voices when asked. She stated, 'It's a lot going on with me." She denies SI/HI's and AVH's. She denies any side effects of her medication. Mental Status Exam - Vital signs Last Vital Signs Temp 97.3 F L 07/07/18 23:51 Pulse 84 07/07/18 23:51 Resp 16 07/08/18 10:23 BP 99/54 07/07/18 23:51 Pulse Ox 100 07/07/18 23:51 - Exam Narrative exam: MSE: Appearance: calm, cooperative Behavior: regular eye contact Speech: regular rate and tone Mood: "okay" Affect: congruent to mood Thought Process: circumstantial Thought Content: denies SI/HI's and AVH's Motor Activity: lying in bed Cognition: A/O x 3 Insight: variable Judgment: variable Assessment and Plan Impression: Unspecified Psychosis. Today the patient is calm and cooperative during the assessment. She minimizes her actions. DDx: R/O Schizoaffective DO, MDD with psychosis, Bipolar DO Recommendation/Plan: Continue 1013 with placement to an inpatient psy services. Unable to continue Clozaril 25 mg PO QAM, 50mg PO QHS. This medications isn't on formulary. Continue Zyprexa 5 mg PO HS for mood/psychosis. Discussed possible metabolic side effects of Zyprexa with the patient.
--- NOTE | 2018-07-09 12:41 | Progress Note ---
Subjective - Reason for Consult Consult date: 07/09/18 Reason for consult: Psyhciatry Follow-up - Chief Complaint Chief complaint: "I mad a bad choice" 22 years old female presenting to the ER for SI's and hearing voices. Today the patient is calm and cooperative during the assessment. She stated that she was trying to hurt herself when she walked into traffic prior to coming to the ER. She stated that was a "bad choice." She denies SI/HI's and and AVH's. She denies any side effects of her medication. Mental Status Exam - Vital signs Last Vital Signs Temp 98.4 F 07/09/18 10:00 Pulse 88 07/09/18 10:00 Resp 18 07/09/18 10:00 BP 121/72 07/09/18 10:00 Pulse Ox 96 07/09/18 10:00 - Exam Narrative exam: MSE: Appearance: calm, cooperative Behavior: regular eye contact Speech: regular rate and tone Mood: "okay" Affect: congruent to mood Thought Process: circumstantial Thought Content: denies SI/HI's and AVH's Motor Activity: lying in bed Cognition: A/O x 3 Insight: fair Judgment: variable Assessment and Plan Impression: Unspecified Psychosis. Today the patient is calm and cooperative during the assessment. She minimizes her actions. DDx: R/O Schizoaffective DO, MDD with psychosis, Bipolar DO Recommendation/Plan: Reevaluate the 1013 in 24 hours to determine proper dispo. If the patient's 1013 is rescinded a risk suicide assessment and safety contract need to be completed prior to her discharge. Unable to continue Clozaril 25 mg PO QAM, 50mg PO QHS. This medications isn't on formulary. Continue Zyprexa 5 mg PO HS for mood/psychosis. Discussed possible metabolic side effects of Zyprexa with the patient.
[2018-07-09 20:42] VITALS: BP 97/66
== END 2018-07-09 21:00 ==
LOC: ED 22:23 → EEVIPCON 22:23 → ED 07-09 21:00
DX: R45.851 Suicidal ideations (principal); F31.9 Bipolar disorder, unspecified; F20.9 Schizophrenia, unspecified; F90.9 Attention-deficit hyperactivity disorder, unspecified type; F43.10 Post-traumatic stress disorder, unspecified; J45.909 Unspecified asthma, uncomplicated; E11.9 Type 2 diabetes mellitus without complications; Z91.013 Allergy to seafood; Z91.010 Allergy to peanuts; Z91.018 Allergy to other foods
CPT/HCPCS: 36415; 80048; 80307; 81001; 82962; 84703; 85025; 99285; G0480; 80320